=== PATIENT | male | born 1955 | race Caucasian/White ===

== ENCOUNTER 2017-03-22 20:43 | Emergency (ER) | payer OTHER ==
[2017-03-22] MEDS ORDERED: FLEXERIL ONE (22:05)
[2017-03-22] MEDS ORDERED: TYLENOL ONE (22:05)
[2017-03-22] MEDS ORDERED: TYLENOL PO ONE (22:09)
[2017-03-22] MEDS ORDERED: FLEXERIL PO ONE ×2 (22:10→23:46)
[2017-03-22] MEDS ORDERED: PERCOCET 5/325 PO ONE (23:46)
--- NOTE | 2017-03-22 23:47 | Emergency Department Report ---
ED Back Pain/Injury HPI - General Chief Complaint: Back Pain/Injury Stated Complaint: BACK PAIN Time Seen by Provider: 03/22/17 23:36 Source: patient, family Mode of arrival: Ambulatory Limitations: No Limitations - History of Present Illness Initial Comments: Patient here reports having left lower back pain times one week. He's had similar incident in the past. Denies any history of kidney stones. Denies any urinary burning frequency or urgency. Denies any abdominal pain. Denies any nausea vomiting, fever or chills. He denies any history of any medical problems. He said that he was doing some gardening and bending today and his back pain worsening. Reports this pain 10 out of 10 and achy and. Took Advil with minimal relief. Denies any radiation of pain. Denies any numbness or tingling to extremity. Blood pressure elevated in triage at 176/105 and patient denies any history of high blood pressure. Patient goes to [facility] for primary care. Denies any loss of bowel or bladder function. Denies any blood in his urine. Denies any chest pain or shortness of breath. MD Complaint: back pain, back injury Onset/Timin -: week(s) Similar Symptoms Previously: Yes Place: home Radiation: none Severity: severe Severity scale (0 -10): 10 Quality: aching Consistency: constant Improves With: immobilization Worsens With: movement, walking Context: turning/twisting, bending Associated Symptoms: difficulty walking. denies: confusion, weakness, chest pain, numbness, cough, difficulty urinating, diaphoresis, incontinence, fever/ chills, constipation, headaches, abdominal pain, loss of appetite, malaise, nausea/vomiting, rash, seizure, shortness of breath, syncope Treatments Prior to Arrival: NSAIDS - Related Data Previous Rx's Medication Instructions Recorded Last Taken Type methOCARBAMOL [Robaxin TAB] 500 mg PO BID PRN #12 tab 03/23/17 Unknown Rx traMADol [Ultram] 50 mg PO Q6HR PRN #20 tablet 03/23/17 Unknown Rx Allergies Allergy/AdvReac Type Severity Reaction Status Date / Time No Known Allergies Allergy Unverified 03/22/17 21:51 ED Review of Systems ROS: Stated complaint: BACK PAIN Other details as noted in HPI Comment: All other systems reviewed and negative Constitutional: denies: chills, fever Eyes: denies: eye pain Respiratory: no symptoms reported Cardiovascular: denies: chest pain, palpitations, dyspnea on exertion, orthopnea , edema, syncope Gastrointestinal: denies: abdominal pain, nausea, vomiting, constipation Genitourinary: denies: urgency, dysuria, frequency, hematuria, discharge, testicular pain, testicular mass Musculoskeletal: back pain. denies: joint swelling, arthralgia Skin: denies: rash Neurological: denies: headache, weakness, numbness, paresthesias, confusion, abnormal gait, vertigo ED Past Medical Hx - Past Medical History Previous Medical History?: Yes - Surgical History Past Surgical History?: No - Family History Family history: no significant - Social History Smoking Status: Never Smoker Substance Use Type: None - Medications Home Medications: Home Medications Medication Instructions Recorded Confirmed Last Taken Type methOCARBAMOL [Robaxin TAB] 500 mg PO BID PRN #12 tab 03/23/17 Unknown Rx traMADol [Ultram] 50 mg PO Q6HR PRN #20 tablet 03/23/17 Unknown Rx ED Physical Exam - General Limitations: No Limitations General appearance: alert, in no apparent distress - Head Head exam: Present: atraumatic, normocephalic, normal inspection - Eye Eye exam: Present: normal appearance, PERRL, EOMI. Absent: periorbital swelling , periorbital tenderness Pupils: Present: normal accommodation - ENT ENT exam: Present: normal exam, normal orophraynx - Neck Neck exam: Present: normal inspection, full ROM. Absent: tenderness, meningismus, thyromegaly - Expanded Neck Exam Expanded Neck exam: Absent: midline deformity, anterior neck swelling, tracheal deviation - Respiratory Respiratory exam: Present: normal lung sounds bilaterally. Absent: respiratory distress - Cardiovascular Cardiovascular Exam: Present: regular rate, normal rhythm, normal heart sounds - GI/Abdominal GI/Abdominal exam: Present: soft, normal bowel sounds. Absent: distended, tenderness, guarding, rebound, rigid, organomegaly, bruit, pulsatile mass, hernia - Extremities Exam Extremities exam: Present: normal inspection, full ROM, normal capillary refill. Absent: tenderness, pedal edema, joint swelling, calf tenderness - Back Exam Back exam: Present: full ROM, muscle spasm (left distal lumbar area). Absent: tenderness, CVA tenderness (R), paraspinal tenderness, vertebral tenderness, rash noted - Expanded Back Exam Expanded Back exam: Absent: saddle anesthesia Back exam: Negative Straight Leg Raising: Left, Right - Neurological Exam Neurological exam: Present: alert, oriented X3, normal gait, reflexes normal. Absent: motor sensory deficit - Expanded Neurological Exam Expanded Neurological exam: Absent: innattentive, memory loss-remote event, memory loss- recent event, ataxia, receptive aphasia, expressive aphasia, total aphasia, tremor, protecting the airway Patient oriented to: Present: person, place, time Speech: Present: fluid speech Cranial nerves: EOM's Intact: Normal, Gag Reflex: Normal, Facial Sensation: Normal Cerebellar function: Romberg: Normal Upper motor neuron: Pronator Drift: Normal Sensory exam: Upper Extremity Light Touch: Normal, Upper Extremity Temperature: Normal, UE 2 Point Discrimination: Normal, Lower Extremity Light Touch: Normal, Lower Extremity Temperature: Normal, LE 2 Point Discrimination: Normal Motor strength exam: RUE: 5, LUE: 5, RLE: 5, LLE: 5 DTR: bicep (R): 2+, bicep (L): 2+, tricep (R): 2+, tricep (L): 2+, knee (R): 2+ , knee (L): 2+, ankle (R): 2+, ankle (L): 2+ Best Eye Response ([place]): (4) open spontaneously Best Motor Response ([place]): (6) obeys commands Best Verbal Response ([place]): (5) oriented [place] Total: 15 - Psychiatric Psychiatric exam: Present: normal affect, normal mood - Skin Skin exam: Present: warm, dry, intact, normal color. Absent: rash ED Course Vital Signs 03/22/17 03/22/17 03/22/17 21:55 22:13 23:54 Temperature 97.8 F Pulse Rate 85 Respiratory 20 20 20 Rate Blood Pressure 176/105 O2 Sat by Pulse 100 Oximetry Vital Signs 03/22/17 03/22/17 03/22/17 21:55 22:13 23:54 Temperature 97.8 F Pulse Rate 85 Respiratory 20 20 20 Rate Blood Pressure 176/105 Blood Pressure [Left] O2 Sat by Pulse 100 Oximetry 03/23/17 00:48 Temperature 98.3 F Pulse Rate 81 Respiratory 20 Rate Blood Pressure Blood Pressure 167/86 [Left] O2 Sat by Pulse 98 Oximetry - Reevaluation(s) Reevaluation #1: 05/22/17 00:54 Patient given Flexeril 5 mg and Tylenol 650 mg in triage area with minimal relief of pain. He was then given Percocet 5/325 mg 2 tablets and additional 5 mg of Flexeril with relief of pain. Blood pressure better but still mildly elevated. Patient able to ambulate without any difficulties. ED Medical Decision Making - Lab Data Lab Results 03/22/17 Range/Units Unknown Urine Color Yellow (Yellow) Urine Turbidity Clear (Clear) Urine pH 6.0 (5.0-7.0) Ur Specific [place] 1.020 (1.003-1.030) Urine Protein 30 mg/dl (Negative) mg/dL Urine Glucose (UA) 50 (Negative) mg/dL Urine Ketones Neg (Negative) mg/dL Urine Blood Neg (Negative) Urine Nitrite Neg (Negative) Urine Bilirubin Neg (Negative) Urine Urobilinogen < 2.0 (<2.0) mg/dL Ur Leukocyte Esterase Neg (Negative) Urine WBC (Auto) 1.0 (0.0-6.0) /HPF Urine RBC (Auto) 1.0 (0.0-6.0) /HPF U Epithel Cells (Auto) < 1.0 (0-13.0) /HPF Urine Mucus Few /HPF - Medical Decision Making ED course: Patient here complaining of left lower back pain after examination patient with lumbar spasm and left lower back strain. Patient also had elevated blood pressure in triage and after he received pain medication his blood pressure stable but still mildly elevated. Urinalysis did not show any signs of urinary infection or blood in his urine but he did have some protein and some glucose in his urine. He denies any history of diabetes or any other medical problem. I discussed with patient and family that they will need to follow-up with his primary care physician at [facility] for further examination of protein and glucose in his urine. I also discussed diagnosis and treatment plan and they voiced understanding. Patient initially presented to triage area and was given Flexeril 5 mg and Tylenol 650 mg for left lower back pain. He had minimal relief and was given additional pain medication to include Percocet 5/325 mg 2 tablets with additional Flexeril 5 mg by mouth. His pain is better now. discharged home with Manisha and Reynaldo to follow-up with orthopedic doctor and his primary care doctor at [facility]. Discharged home with his family in stable condition. Critical care attestation.: If time is entered above; I have spent that time in minutes in the direct care of this critically ill patient, excluding procedure time. ED Disposition Clinical Impression: Elevated blood-pressure reading without diagnosis of hypertension, Spasm of back muscles, Glucosuria Lumbar strain Qualifiers: Encounter type: initial encounter Qualified Code(s): S39.012A - Strain of muscle, fascia and tendon of lower back, initial encounter Protein in urine Qualifiers: Proteinuria type: unspecified Qualified Code(s): R80.9 - Proteinuria, unspecified Disposition: DISCHARGED TO HOME OR SELFCARE Is pt being admited?: No Does the pt Need Aspirin: No Condition: Stable Instructions: Low Back Strain (ED), Core Strengthening Exercises (GEN), Hypertension (ED), Muscle Spasm (ED) Additional Instructions: Your urine was normal except that you have had small amount of protein and glucose in year urine. Please schedule appointment with your [facility] primary care physician for further evaluation and treatment. Please take medication as prescribed. Robaxin can cause drowsiness so please do not drive or operate heavy machinery while taking this medication. If he still continued to have back pain, please follow-up with orthopedic doctor per [facility]. Prescriptions: methOCARBAMOL [Robaxin TAB] 500 mg PO BID PRN #12 tab PRN Reason: Muscle Spasm traMADol [Ultram] 50 mg PO Q6HR PRN #20 tablet PRN Reason: Pain Referrals: PRIMARY CARE, [Primary Care Provider] - 2-3 Days [facility] [Provider Group] - 2-3 Days Forms: Work/School Release Form(ED), Accompanied Note
[2017-03-23 00:03] LABS: Bilirubin,Urine NEG (Negative); Blood,Urine NEG (Negative); Ketones,Urine NEG (Negative); Leukocyte Esterase,Urine NEG (Negative); Mucus,Urine FEW /HPF; Nitrite,Urine NEG (Negative); Urobilinogen,Urine < 2.0 mg/dL (<2.0)
[2017-03-23 00:49] VITALS: BP 167/86
== END 2017-03-23 02:00 | disposition home or self-care (01) ==
LOC: ED 20:43
DX: S39.012A Strain of muscle, fascia and tendon of lower back, initial encounter (principal); R03.0 Elevated blood-pressure reading, without diagnosis of hypertension; R80.9 Proteinuria, unspecified; R81 Glycosuria; X50.1XXA Overexertion from prolonged static or awkward postures, initial encounter; Y93.H2 Activity, gardening and landscaping; Y99.8 Other external cause status; Y92.89 Other specified places as the place of occurrence of the external cause
CPT/HCPCS: 81001; 99283